=== PATIENT | female | born 1965 | race Caucasian/White ===

== ENCOUNTER 2023-12-15 16:19 | Emergency (ER) | payer BC, SELFPAY ==
[2023-12-15 16:41] VITALS: BP 127/88; PULSE 107; RESP 18; TEMP 36.6; O2SAT 100
--- NOTE | 2023-12-15 17:47 | US_ITS ---
Patient: ANDRIY CANELA Facility:?[facility] Patient ID:?[id number] Site Patient ID:?[id number]. Site :?[id number] Study:?US-Extremity LEV left-12/15/2023 6:57:00 PM Ordering Physician:?Dr. Naqvi Final Report: INDICATION: Left leg pain and swelling. COMPARISON: None. TECHNIQUE: A compression venous ultrasound exam was performed of the left lower extremity using dumas-scale imaging, color Doppler, and spectral Doppler analysis. FINDINGS: Sonographic imaging of the left lower extremity demonstrates normal compressibility and color Doppler venous blood flow within the common femoral, femoral, deep femoral, and proximal greater saphenous veins. At a lower level the popliteal, peroneal, and posterior tibial veins also show normal compressibility and color Doppler venous blood flow. There is a large complex fluid collection extending from the posterior distal thigh to mid calf measuring approximately 20 cm longitudinally. No internal vascularity. Subcutaneous edema. IMPRESSION: 1. Negative for acute DVT in the left lower extremity. 2. 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 Dictated by Angi Goode MD @ 12/15/2023 8:17:36 PM Signed by:?Angi Goode MD @12/15/2023 8:17:36 PM (Electronic Signature)
--- NOTE | 2023-12-15 17:47 | ED_ITS ---
HPI - General Adult General Chief complaint: Lower Extremity Swelling Stated complaint: L leg possible blood clot Time Seen by Provider: 12/15/23 16:21 History of Present Illness HPI narrative: This 58-year-old female has been wearing a boot on her left lower extremity because of a strain of her left Achilles tendon. She has now developed some pain and swelling with redness in the upper calf and behind her left knee. She comes in wondering if this may be related to a blood clot. She does not report any chest pain or shortness of breath. Related Data Home Medications Medication Instructions Recorded Confirmed No Known Home Medications 12/15/23 12/15/23 Previous Rx's Medication Instructions Recorded cephalexin 500 mg capsule 500 mg PO TID 7 days #21 caps 12/15/23 Allergies Allergy/AdvReac Type Severity Reaction Status Date / Time No Known Drug Allergies Allergy Verified 12/15/23 16:46 Review of Systems Status of ROS: Reports: 10 or more systems reviewed and unremarkable except as noted in History and below Narrative: Constitutional: No fevers, no weight gain or loss. Eyes: No discharge. No vision changes. HENT: No congestion, no sore throat, no ear pain. Cardiovascular: No chest pain, no palpitations. Respiratory: No shortness of breath, no wheezes, no cough. Gastrointestinal: No abdominal pain, no vomiting, no diarrhea. Genitourinary: No dysuria, no hematuria. Musculoskeletal: Left lower extremity pain as described above. Skin: No rashes, no pruritis. Neurological: No dizziness, weakness, sensory change, speech change. Endo/Heme/Allergies: No bruising or bleeding. No polydipsia. Pysch: no suicidality, no anxiety, no insomnia. All other systems reviewed and are negative. Exam Narrative: Exam Narrative: Constitutional: Well-developed, well-nourished, no acute distress. HEENT: Normocephalic, atraumatic. Neck: Normal range of motion. Nontender. Supple. Heart: Regular. No murmurs. Borderline tachycardia. Intact distal pulses. Lungs: Clear to auscultation. No chest discomfort. No wheezes, rhonchi, or rales. Abdomen: Normal bowel sounds. Nontender. No rebound tenderness. Genitalia: Deferred. Back: No midline tenderness. Normal range of motion. Extremities: Normal range of motion. No injury. Skin: Intact. No rash. Warm. No erythema or pallor. Neurologic: No altered sensation. No weakness. Alert and oriented. Psychiatric: No suicidality. No anxiety or depression. No insomnia. Nursing notes and vitals signs are reviewed. Const: Vital Signs, click to edit/add: Vital Signs - 24 hr 12/15/23 16:41 Temperature 97.9 F Pulse Rate [Pulse Oximeter] 107 H Respiratory Rate 18 Blood Pressure [Ri ght Upper Arm] 127/88 Pulse Oximetry 100 Oxygen Delivery Me thod Room Air Course Vital Signs Vital signs: Initial Vital Signs Temperature 97.9 F 12/15/23 16:41 Temperature Source Temporal Artery Scan 12/15/23 16:41 Pulse Rate 107 H 12/15/23 16:41 Respiratory Rate 18 12/15/23 16:41 Blood Pressure 127/88 12/15/23 16:41 Blood Pressure Mean 101 12/15/23 16:41 Blood Pressure Position Sitting 12/15/23 16:41 Pulse Oximetry 100 12/15/23 16:41 Oxygen Delivery Method Room Air 12/15/23 16:41 Vital Signs Temperature 97.9 F 12/15/23 16:41 Pulse Rate 107 H 12/15/23 16:41 Respiratory Rate 18 12/15/23 16:41 Blood Pressure 127/88 12/15/23 16:41 Pulse Oximetry 100 12/15/23 16:41 Oxygen Delivery Method Room Air 12/15/23 16:41 Temperature 97.9 F 12/15/23 16:41 Pulse Rate 107 H 12/15/23 16:41 Respiratory Rate 18 12/15/23 16:41 Blood Pressure 127/88 12/15/23 16:41 Pulse Oximetry 100 12/15/23 16:41 Oxygen Delivery Method Room Air 12/15/23 16:41 Medical Decision Making MDM Narrative Medical decision making narrative: This 58-year-old female is been wearing a walking boot provided by [facility] because of a strain of her Achilles tendon. She comes in reporting increased pain in her upper calf with some erythema. She does not have a history of blood clot but wonders if this may have developed to explain her symptoms. 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 There is some erythema in this area which does trigger somewhat of a concern for possible infection. The patient does have ongoing management with [facility]. I did provide a prescription for Keflex and advised her to contact her orthopedic clinic tomorrow morning for ongoing management. Discharge Plan Discharge Clinical Impression: Edouard cyst Patient Disposition: Home, Self-Care Condition: Unchanged Additional Instructions: Take medication as prescribed. Follow up with [facility]. Call for appointment tomorrow morning. Return if worsening. Prescriptions: New cephalexin 500 mg capsule 500 mg PO TID 7 Days Qty: 21 0RF No Action No Known Home Medications Follow Up/Referrals: Provider,Not a Local [Primary Care Provider] - Stand Alone Forms: [employer] Info Instructions
== END 2023-12-15 19:12 | disposition home or self-care (01) ==
PROVIDERS: Emergency Provider Emergency Medicine Emergency Medical Services
DX: M71.22 Synovial cyst of popliteal space [Baker], left knee (principal)
CPT/HCPCS: 93971; 99284